=== PATIENT | female | born 1970 | race Caucasian/White ===

== ENCOUNTER → 2017-05-12 | Outpatient (CLI) | payer BC ==
--- NOTE | 2017-05-13 07:31 | MM ---
Reason for exam: screening (asymptomatic). Last mammogram was performed 2 years and 6 months ago. History: Family history of breast cancer in mother at age 64 and breast cancer in paternal aunt. Took hormonal contraceptives for 7 years beginning at age 27. Physical Findings: A clinical breast exam by your physician is recommended on an annual basis and results should be correlated with mammographic findings. MG Screening Mammo w CAD Bilateral CC and MLO view(s) were taken. Prior study comparison: November 26, 2014, bilateral MG screening mammo w CAD. June 11, 2013, bilateral digital screening mammo w/CAD. There are scattered fibroglandular densities. There is no discrete abnormality. No significant changes when compared with prior studies. ASSESSMENT: Negative, BI-RAD 1 RECOMMENDATION: Routine screening mammogram of both breasts in 1 year.
== END | disposition home or self-care (01) ==
LOC: RADMAMWWP 07:33
PROVIDERS: ATTEND Obstetrics & Gynecology
DX: Z12.31 Encounter for screening mammogram for malignant neoplasm of breast (principal)

== ENCOUNTER → 2019-09-26 | Outpatient (CLI) | payer BC ==
--- NOTE | 2019-09-27 10:44 | MM ---
Reason for exam: screening (asymptomatic). Last mammogram was performed 2 years and 4 months ago. History: Family history of breast cancer in mother at age 64 and breast cancer in paternal aunt. Took hormonal contraceptives for 7 years beginning at age 27. Physical Findings: A clinical breast exam by your physician is recommended on an annual basis and results should be correlated with mammographic findings. MG 3D Screening Mammo W/Cad Bilateral CC and MLO view(s) were taken. Prior study comparison: May 12, 2017, bilateral MG screening mammo w CAD. November 26, 2014, bilateral MG screening mammo w CAD. The breast tissue is heterogeneously dense. This may lower the sensitivity of mammography. There is no discrete abnormality. No significant changes when compared with prior studies. ASSESSMENT: Negative, BI-RAD 1 RECOMMENDATION: Routine screening mammogram of both breasts in 1 year.
== END | disposition home or self-care (01) ==
LOC: RADMAMWWP 07:13
PROVIDERS: ATTEND Obstetrics & Gynecology
DX: Z12.31 Encounter for screening mammogram for malignant neoplasm of breast (principal); Z80.3 Family history of malignant neoplasm of breast
CPT/HCPCS: 77063; 77067

== ENCOUNTER 2020-09-16 08:15 | Emergency (ER) | payer BC ==
[2020-09-16] MEDS ORDERED: ACETAMINOPHEN TAB 500 MG TAB PO STA (08:50)
[2020-09-16] MEDS ORDERED: SODIUM CHLORIDE 0.9% 2,000 ML IV ONE (08:51)
--- NOTE | 2020-09-16 08:53 | ED ---
General Adult HPI - General Chief complaint: Nausea/Vomiting/Diarrhea Stated complaint: Covid +, Vomiting Time Seen by Provider: 09/16/20 08:27 Source: patient, RN notes reviewed, old records reviewed Mode of arrival: wheelchair Limitations: no limitations - History of Present Illness Initial comments: Patient is a 50-year-old female who presents to the emergency department today for evaluation chief complaint of nausea vomiting diarrhea. She reports she's had significant symptoms for the past 48 hours. Patient states that she's been coming down and bodyaches fevers chills and nausea on Tuesday of last week and had a cold the test on Tuesday that was positive. Patient was exposed to a coworker. She reports she's been trying Zofran at home without relief. She reports her mouth feels dry. She denies trouble breathing or chest pain. - Related Data Previous Rx's Medication Instructions Recorded Metoclopramide [Reglan] 10 mg PO BID #20 tab 09/16/20 Ondansetron Odt [Zofran Odt] 4 mg PO Q8HR PRN #12 tab 09/16/20 Allergies Allergy/AdvReac Type Severity Reaction Status Date / Time No Known Allergies Allergy Verified 09/16/20 08:22 Review of Systems ROS Statement: Those systems with pertinent positive or pertinent negative responses have been documented in the HPI. ROS Other: All systems not noted in ROS Statement are negative. Past Medical History Past Medical History: GERD/Reflux Additional Past Medical History / Comment(s): UTI'S, STRESS INCONT History of Any Multi-Drug Resistant Organisms: None Reported Past Surgical History: Cholecystectomy Additional Past Surgical History / Comment(s): GANGLION CYST REMOVED FROM LT HAND,OVARIAN CYST REMOVED Past Anesthesia/Blood Transfusion Reactions: No Reported Reaction Past Psychological History: Anxiety Smoking Status: Never smoker Past Alcohol Use History: Occasional Past Drug Use History: None Reported - Past Family History Mother Family Medical History: Diabetes Mellitus, Myocardial Infarction ([place]) Additional Family Medical History / Comment(s): HAD [place] AT EITHER AGE 49 OR 50 Father Family Medical History: Myocardial Infarction ([place]) Additional Family Medical History / Comment(s): PA AT AGE 55, SPINAL STENOSIS General Exam - General Exam Comments Initial Comments: 50-year-old female. No distress. Limitations: no limitations General appearance: alert, in no apparent distress Head exam: Present: atraumatic, normocephalic, normal inspection Eye exam: Present: normal appearance, PERRL, EOMI. Absent: scleral icterus, conjunctival injection, periorbital swelling ENT exam: Present: normal exam, mucous membranes moist Neck exam: Present: normal inspection. Absent: tenderness, meningismus, lymphadenopathy Respiratory exam: Present: normal lung sounds bilaterally. Absent: respiratory distress, wheezes, rales, rhonchi, stridor Cardiovascular Exam: Present: regular rate, normal rhythm, normal heart sounds. Absent: systolic murmur, diastolic murmur, rubs, gallop, clicks GI/Abdominal exam: Present: soft, normal bowel sounds. Absent: distended, tenderness, guarding, rebound, rigid Extremities exam: Present: normal inspection, full ROM, normal capillary refill. Absent: tenderness, pedal edema, joint swelling, calf tenderness Back exam: Present: normal inspection Neurological exam: Present: alert, oriented X3, CN II-XII intact Psychiatric exam: Present: normal affect, normal mood Skin exam: Present: warm, dry, intact, normal color. Absent: rash Course Vital Signs 09/16/20 09/16/20 08:16 11:40 Temperature 101.9 F H 101.3 F H Pulse Rate 106 H 94 Respiratory 18 17 Rate Blood Pressure 125/77 145/78 O2 Sat by Pulse 94 L 96 Oximetry Medical Decision Making - Lab Data Result diagrams: 09/16/20 10:25 09/16/20 10:25 Lab Results 09/16/20 09/16/20 09/16/20 Range/Units 10:25 10:25 10:25 WBC 4.2 (3.8-10.6) k/uL RBC 5.22 (3.80-5.40) m/uL Hgb 15.7 (11.4-16.0) gm/dL Hct 44.8 (34.0-46.0) % MCV 85.9 (80.0-100.0) fL MCH 30.0 (25.0-35.0) pg MCHC 35.0 (31.0-37.0) g/dL RDW 12.2 (11.5-15.5) % Plt Count 188 (150-450) k/uL MPV 7.2 Neutrophils % 85 % Lymphocytes % 8 % Monocytes % 4 % Eosinophils % 1 % Basophils % 1 % Neutrophils # 3.6 (1.3-7.7) k/uL Lymphocytes # 0.4 L (1.0-4.8) k/uL Monocytes # 0.2 (0-1.0) k/uL Eosinophils # 0.0 (0-0.7) k/uL Basophils # 0.1 (0-0.2) k/uL PT 9.9 (9.0-12.0) sec INR 0.9 (<1.2) APTT 22.2 (22.0-30.0) sec Sodium 135 L (137-145) mmol/L Potassium 3.3 L (3.5-5.1) mmol/L Chloride 99 (98-107) mmol/L Carbon Dioxide 27 (22-30) mmol/L Anion Gap 9 mmol/L BUN 11 (7-17) mg/dL Creatinine 0.71 (0.52-1.04) mg/dL Est GFR (CKD-EPI)AfAm >90 (>60 ml/min/1.73 sqM) Est GFR (CKD-EPI)NonAf >90 (>60 ml/min/1.73 sqM) Glucose 130 H (74-99) mg/dL Plasma Lactic Acid Elvis (0.7-2.0) mmol/L Calcium 8.5 (8.4-10.2) mg/dL Magnesium 2.1 (1.6-2.3) mg/dL Total Bilirubin 0.6 (0.2-1.3) mg/dL AST 91 H (14-36) U/L ALT 84 H (4-34) U/L Alkaline Phosphatase 88 (38-126) U/L Lactate Dehydrogenase 697 H (313-618) U/L C-Reactive Protein 19.6 H (<10.0) mg/L Total Protein 7.4 (6.3-8.2) g/dL Albumin 4.3 (3.5-5.0) g/dL 09/16/20 Range/Units 10:25 WBC (3.8-10.6) k/uL RBC (3.80-5.40) m/uL Hgb (11.4-16.0) gm/dL Hct (34.0-46.0) % MCV (80.0-100.0) fL MCH (25.0-35.0) pg MCHC (31.0-37.0) g/dL RDW (11.5-15.5) % Plt Count (150-450) k/uL MPV Neutrophils % % Lymphocytes % % Monocytes % % Eosinophils % % Basophils % % Neutrophils # (1.3-7.7) k/uL Lymphocytes # (1.0-4.8) k/uL Monocytes # (0-1.0) k/uL Eosinophils # (0-0.7) k/uL Basophils # (0-0.2) k/uL PT (9.0-12.0) sec INR (<1.2) APTT (22.0-30.0) sec Sodium (137-145) mmol/L Potassium (3.5-5.1) mmol/L Chloride (98-107) mmol/L Carbon Dioxide (22-30) mmol/L Anion Gap mmol/L BUN (7-17) mg/dL Creatinine (0.52-1.04) mg/dL Est GFR (CKD-EPI)AfAm (>60 ml/min/1.73 sqM) Est GFR (CKD-EPI)NonAf (>60 ml/min/1.73 sqM) Glucose (74-99) mg/dL Plasma Lactic Acid Elvis 1.0 (0.7-2.0) mmol/L Calcium (8.4-10.2) mg/dL Magnesium (1.6-2.3) mg/dL Total Bilirubin (0.2-1.3) mg/dL AST (14-36) U/L ALT (4-34) U/L Alkaline Phosphatase (38-126) U/L Lactate Dehydrogenase (313-618) U/L C-Reactive Protein (<10.0) mg/L Total Protein (6.3-8.2) g/dL Albumin (3.5-5.0) g/dL 09/16/20 10:31 EKG performed at 942 shows left axis deviation.. Infarct age undetermined. Abnormal EKG. Ventricular rate 100 beats per minute.. Intervals 128 ms. QS duration is 80 ms. QT QTc is 336/459 ms. - Radiology Data Radiology results: report reviewed Chest x-ray shows left lower lobe infiltrate. Disposition Clinical Impression: COVID-19, Nausea & vomiting Disposition: HOME SELF-CARE Condition: Good Instructions (If sedation given, give patient instructions): Acute Nausea and Vomiting (ED) Additional Instructions: Please use medication as discussed. She should monitor pulse ox at home. If pulse oximeter is below 90 were having severe difficulty in breathing please return to emergency department. Take nausea medicine as prescribed, rest remain hydrated. Patient should have self quarantine for 14 days. Please follow up with family doctor if symptoms have not improved over the next two days. Please return to the emergency room if your symptoms increase or worsen or for any other concerns. Prescriptions: Metoclopramide [Reglan] 10 mg PO BID #20 tab Ondansetron Odt [Zofran Odt] 4 mg PO Q8HR PRN #12 tab PRN Reason: Nausea Is patient prescribed a controlled substance at d/c from ED?: No Referrals: Ze Dobson DO [Primary Care Provider] - 1-2 days Time of Disposition: 12:23
[2020-09-16] MEDS ORDERED: ONDANSETRON 4 MG/2 ML VIAL IVP STA (09:57)
--- NOTE | 2020-09-16 10:00 | XR ---
EXAMINATION TYPE: XR chest 1V portable DATE OF EXAM: 09/16/2020 COMPARISON: 06/16/2016 HISTORY: Chest pain TECHNIQUE: Single frontal view of the chest is obtained. FINDINGS: There is left lower lobe infiltrate. No pneumothorax or overt failure. No pleural effusion . No interstitial edema. Heart size normal. IMPRESSION: Left lower lobe infiltrate.
[2020-09-16 10:37] LABS: Basophils # (A) 0.1 k/uL (0-0.2); Basophils % (A) 1 %; Eosinophils % (A) 1 %; HCT 44.8 % (34.0-46.0); HGB 15.7 gm/dL (11.4-16.0); Lymphocytes # (A) 0.4 k/uL (1.0-4.8); Lymphocytes % (A) 8 %; MCV 85.9 fL (80.0-100.0); Mean Platelet Volume 7.2; Monocytes # (A) 0.2 k/uL (0-1.0); Monocytes % (A) 4 %; Neutrophils # (A) 3.6 k/uL (1.3-7.7); Neutrophils % (A) 85 %; Platelet Count 188 k/uL (150-450); RBC 5.22 m/uL (3.80-5.40); RDW 12.2 % (11.5-15.5); WBC 4.2 k/uL (3.8-10.6)
[2020-09-16 10:50] LABS: ALT 84 U/L (4-34); AST 91 U/L (14-36); African American GFR (CKD) >90 (>60 ml/min/1.73 sqM); Albumin 4.3 g/dL (3.5-5.0); Alkaline Phosphatase 88 U/L (38-126); Anion Gap 9 mmol/L; Blood Urea Nitrogen 11 mg/dL (7-17); C Reactive Protein 19.6 mg/L (<10.0); Calcium 8.5 mg/dL (8.4-10.2); Carbon Dioxide 27 mmol/L (22-30); Chloride 99 mmol/L (98-107); Glucose 130 mg/dL (74-99); INR 0.9 (<1.2); LDH 697 U/L (313-618); Magnesium 2.1 mg/dL (1.6-2.3); Non-African American GFR(CKD) >90 (>60 ml/min/1.73 sqM); Partial Thromboplastin Time 22.2 sec (22.0-30.0); Potassium 3.3 mmol/L (3.5-5.1); Prothrombin Time 9.9 sec (9.0-12.0); Sodium 135 mmol/L (137-145); Total Bilirubin 0.6 mg/dL (0.2-1.3); Total Protein 7.4 g/dL (6.3-8.2)
[2020-09-16] MEDS ORDERED: SODIUM CHLORIDE 0.9% 1,000 ML IV ONE (11:16)
[2020-09-16] MEDS ORDERED: KETOROLAC 15 MG/ML 1 ML VIAL IVP STA (11:16)
[2020-09-16] MEDS ORDERED: METOCLOPRAMIDE 5 MG/ML 2 ML VIAL IVP STA (11:16)
[2020-09-16] MEDS ORDERED: diphenhydrAMINE 50 MG/ML 1 ML VIAL IVP STA (11:16)
[2020-09-16 11:41] VITALS: BP 145/78; PULSE 94; RESP 17; TEMP 101.3
[2020-09-16 15:13] LABS: Ferritin 515.3 ng/mL (10.0-291.0)
== END 2020-09-16 13:06 | disposition home or self-care (01) ==
LOC: EC 08:15
DX: U07.1 COVID-19 (principal)
CPT/HCPCS: 36415; 93005; 80053; 82728; 83605; 83615; 83735; 85025; 85610; 85730; 86140; 87040; 84145; 71045; 99284; 96374; 96375 ×3; 96361 ×3; J1200; J2765; J2405; J1885

== ENCOUNTER 2020-09-18 05:09 | Inpatient (IN) | payer BC ==
[2020-09-18] MEDS ORDERED: METOCLOPRAMIDE 5 MG/ML 2 ML VIAL IVP STA (05:40)
[2020-09-18] MEDS ORDERED: ACETAMINOPHEN TAB 325 MG TAB PO STA (05:40)
[2020-09-18] MEDS ORDERED: SODIUM CHLORIDE 0.9% 500 ML 500 ML IV STA (05:40)
[2020-09-18 06:12] LABS: Basophils % (A) 1 %; Eosinophils % (A) 1 %; HCT 40.5 % (34.0-46.0); HGB 13.7 gm/dL (11.4-16.0); Lymphocytes # (A) 0.4 k/uL (1.0-4.8); Lymphocytes % (A) 12 %; MCH 28.9 pg (25.0-35.0); MCHC 33.8 g/dL (31.0-37.0); MCV 85.6 fL (80.0-100.0); Mean Platelet Volume 7.3; Monocytes # (A) 0.1 k/uL (0-1.0); Monocytes % (A) 4 %; Neutrophils # (A) 2.6 k/uL (1.3-7.7); Neutrophils % (A) 83 %; Platelet Count 160 k/uL (150-450); RBC 4.73 m/uL (3.80-5.40); RDW 12.6 % (11.5-15.5); WBC 3.2 k/uL (3.8-10.6)
--- NOTE | 2020-09-18 06:18 | ED ---
Nausea/Vomiting/Diarrhea HPI - General Chief complaint: Nausea/Vomiting/Diarrhea Stated complaint: Vomiting, Covid + Time Seen by Provider: 09/18/20 05:20 Source: patient Mode of arrival: ambulatory Limitations: no limitations - History of Present Illness Initial comments: this patient is 50-year-old woman who presents with complaint that she has had continued vomiting and diarrhea and has not been tolerating oral fluid intake. Patient states that she had developed fever and cough and was diagnosed with coronal virus. She also had developed vomiting and diarrhea and was seen here yesterday. The patient did havefluids and then was sent home but the vomiting recurred and she has not been able take oral intake. There has been no abdominal pain. MD complaint: nausea, vomiting, diarrhea Onset/Timin -: days(s) Description of Vomiting: watery Description of Diarrhea: water Associated Abdominal Pain: No Severity scale (1-10): 0 Consistency: constant Improves with: none Worsens with: none Associated Symptoms: cough, fever/chills, nausea/vomiting - Related Data Home Medications Medication Instructions Recorded Confirmed LORazepam [Ativan] 0.5 mg PO BID PRN 09/18/20 09/18/20 Previous Rx's Medication Instructions Recorded Metoclopramide [Reglan] 10 mg PO BID #20 tab 09/16/20 Ondansetron Odt [Zofran Odt] 4 mg PO Q8HR PRN #12 tab 09/16/20 Allergies Allergy/AdvReac Type Severity Reaction Status Date / Time No Known Allergies Allergy Verified 09/18/20 07:59 Review of Systems ROS Statement: Those systems with pertinent positive or pertinent negative responses have been documented in the HPI. ROS Other: All systems not noted in ROS Statement are negative. Constitutional: Reports: fever, chills Respiratory: Reports: cough, dyspnea. Denies: wheezes, hemoptysis Cardiovascular: Denies: chest pain, palpitations, orthopnea, edema Gastrointestinal: Reports: nausea, vomiting, diarrhea. Denies: abdominal pain, hematemesis, melena, hematochezia Genitourinary: Denies: dysuria, hematuria Musculoskeletal: Denies: back pain Skin: Denies: rash Neurological: Denies: headache, weakness, numbness Past Medical History Past Medical History: GERD/Reflux Additional Past Medical History / Comment(s): UTI'S, STRESS INCONT History of Any Multi-Drug Resistant Organisms: None Reported Past Surgical History: Cholecystectomy Additional Past Surgical History / Comment(s): GANGLION CYST REMOVED FROM LT HAND,OVARIAN CYST REMOVED Past Anesthesia/Blood Transfusion Reactions: No Reported Reaction Past Psychological History: Anxiety Smoking Status: Never smoker Past Alcohol Use History: Occasional Past Drug Use History: None Reported - Past Family History Mother Family Medical History: Diabetes Mellitus, Myocardial Infarction ([place]) Additional Family Medical History / Comment(s): HAD [place] AT EITHER AGE 49 OR 50 Father Family Medical History: Myocardial Infarction ([place]) Additional Family Medical History / Comment(s): [place] AT AGE 55, SPINAL STENOSIS General Exam Limitations: no limitations General appearance: alert, in no apparent distress Head exam: Present: atraumatic, normocephalic Eye exam: Present: normal appearance. Absent: scleral icterus, conjunctival injection ENT exam: Present: mucous membranes dry Neck exam: Present: normal inspection Respiratory exam: Present: normal lung sounds bilaterally. Absent: respiratory distress, wheezes, rales, rhonchi, stridor Cardiovascular Exam: Present: tachycardia, normal heart sounds. Absent: systolic murmur, diastolic murmur, rubs, gallop GI/Abdominal exam: Present: soft. Absent: distended, tenderness, guarding, rebound, rigid, mass Extremities exam: Present: normal inspection, normal capillary refill. Absent: pedal edema, calf tenderness Back exam: Present: normal inspection. Absent: CVA tenderness (R), CVA tenderness (L) Neurological exam: Present: alert Skin exam: Present: warm, dry, intact, normal color. Absent: rash Course Vital Signs 09/18/20 09/18/20 09/18/20 05:23 06:15 07:27 Temperature 103.1 F H 102.5 F H 102.8 F H Pulse Rate 108 H 102 H 104 H Respiratory 18 19 18 Rate Blood Pressure 157/84 133/72 135/71 O2 Sat by Pulse 92 L 91 L 94 L Oximetry 09/18/20 09/18/20 09/18/20 09:30 11:53 14:05 Temperature 100 F H 99.1 F Pulse Rate 94 89 82 Respiratory 18 18 18 Rate Blood Pressure 132/72 116/64 111/74 O2 Sat by Pulse 96 95 94 L Oximetry 09/18/20 09/18/20 16:45 17:57 Temperature 99.5 F 100.2 F H Pulse Rate 82 100 Respiratory 18 18 Rate Blood Pressure 147/77 161/74 O2 Sat by Pulse 95 93 L Oximetry Medical Decision Making - Lab Data Result diagrams: 09/19/20 05:50 09/18/20 06:00 Lab Results 09/18/20 09/18/20 09/18/20 Range/Units 06:00 06:00 06:00 WBC 3.2 L (3.8-10.6) k/uL RBC 4.73 (3.80-5.40) m/uL Hgb 13.7 (11.4-16.0) gm/dL Hct 40.5 (34.0-46.0) % MCV 85.6 (80.0-100.0) fL MCH 28.9 (25.0-35.0) pg MCHC 33.8 (31.0-37.0) g/dL RDW 12.6 (11.5-15.5) % Plt Count 160 (150-450) k/uL MPV 7.3 Neutrophils % 83 % Lymphocytes % 12 % Monocytes % 4 % Eosinophils % 1 % Basophils % 1 % Neutrophils # 2.6 (1.3-7.7) k/uL Lymphocytes # 0.4 L (1.0-4.8) k/uL Monocytes # 0.1 (0-1.0) k/uL Eosinophils # 0.0 (0-0.7) k/uL Basophils # 0.0 (0-0.2) k/uL Sodium 135 L (137-145) mmol/L Potassium 3.1 L (3.5-5.1) mmol/L Chloride 105 (98-107) mmol/L Carbon Dioxide 23 (22-30) mmol/L Anion Gap 7 mmol/L BUN 5 L (7-17) mg/dL Creatinine 0.62 (0.52-1.04) mg/dL Est GFR (CKD-EPI)AfAm >90 (>60 ml/min/1.73 sqM) Est GFR (CKD-EPI)NonAf >90 (>60 ml/min/1.73 sqM) Glucose 127 H (74-99) mg/dL Plasma Lactic Acid Elvis (0.7-2.0) mmol/L Calcium 7.9 L (8.4-10.2) mg/dL Total Bilirubin 0.6 (0.2-1.3) mg/dL AST 55 H (14-36) U/L ALT 48 H (4-34) U/L Alkaline Phosphatase 67 (38-126) U/L Total Protein 6.4 (6.3-8.2) g/dL Albumin 3.6 (3.5-5.0) g/dL Urine Color Yellow Urine Appearance Cloudy H (Clear) Urine pH 6.0 (5.0-8.0) Ur Specific [place] 1.028 (1.001-1.035) Urine Protein 2+ H (Negative) Urine Glucose (UA) Negative (Negative) Urine Ketones 3+ H (Negative) Urine Blood Small H (Negative) Urine Nitrite Negative (Negative) Urine Bilirubin Negative (Negative) Urine Urobilinogen <2.0 (<2.0) mg/dL Ur Leukocyte Esterase Trace H (Negative) Urine RBC 1 (0-5) /hpf Urine WBC 4 (0-5) /hpf Ur Squamous Epith Cells 1 (0-4) /hpf Hyaline Casts 1 (0-2) /lpf Urine Mucus Rare H (None) /hpf 09/18/20 Range/Units 06:00 WBC (3.8-10.6) k/uL RBC (3.80-5.40) m/uL Hgb (11.4-16.0) gm/dL Hct (34.0-46.0) % MCV (80.0-100.0) fL MCH (25.0-35.0) pg MCHC (31.0-37.0) g/dL RDW (11.5-15.5) % Plt Count (150-450) k/uL MPV Neutrophils % % Lymphocytes % % Monocytes % % Eosinophils % % Basophils % % Neutrophils # (1.3-7.7) k/uL Lymphocytes # (1.0-4.8) k/uL Monocytes # (0-1.0) k/uL Eosinophils # (0-0.7) k/uL Basophils # (0-0.2) k/uL Sodium (137-145) mmol/L Potassium (3.5-5.1) mmol/L Chloride (98-107) mmol/L Carbon Dioxide (22-30) mmol/L Anion Gap mmol/L BUN (7-17) mg/dL Creatinine (0.52-1.04) mg/dL Est GFR (CKD-EPI)AfAm (>60 ml/min/1.73 sqM) Est GFR (CKD-EPI)NonAf (>60 ml/min/1.73 sqM) Glucose (74-99) mg/dL Plasma Lactic Acid Elvis 0.7 (0.7-2.0) mmol/L Calcium (8.4-10.2) mg/dL Total Bilirubin (0.2-1.3) mg/dL AST (14-36) U/L ALT (4-34) U/L Alkaline Phosphatase (38-126) U/L Total Protein (6.3-8.2) g/dL Albumin (3.5-5.0) g/dL Urine Color Urine Appearance (Clear) Urine pH (5.0-8.0) Ur Specific [place] (1.001-1.035) Urine Protein (Negative) Urine Glucose (UA) (Negative) Urine Ketones (Negative) Urine Blood (Negative) Urine Nitrite (Negative) Urine Bilirubin (Negative) Urine Urobilinogen (<2.0) mg/dL Ur Leukocyte Esterase (Negative) Urine RBC (0-5) /hpf Urine WBC (0-5) /hpf Ur Squamous Epith Cells (0-4) /hpf Hyaline Casts (0-2) /lpf Urine Mucus (None) /hpf - EKG Data -: EKG Interpreted by [facility] EKG shows normal: sinus rhythm, axis (left axis deviation), intervals (normal), QRS complexes (normal), ST-T waves (normal) Rate: tachycardia (rate 103 bpm) Disposition Clinical Impression: COVID-19, Nausea & vomiting Disposition: ADMITTED IP TO THIS HOSP Condition: Fair Is patient prescribed a controlled substance at d/c from ED?: No
[2020-09-18 06:26] LABS: ALT 48 U/L (4-34); African American GFR (CKD) >90 (>60 ml/min/1.73 sqM); Albumin 3.6 g/dL (3.5-5.0); Anion Gap 7 mmol/L; Blood Urea Nitrogen 5 mg/dL (7-17); Calcium 7.9 mg/dL (8.4-10.2); Carbon Dioxide 23 mmol/L (22-30); Chloride 105 mmol/L (98-107); Glucose 127 mg/dL (74-99); Non-African American GFR(CKD) >90 (>60 ml/min/1.73 sqM); Sodium 135 mmol/L (137-145); Total Bilirubin 0.6 mg/dL (0.2-1.3); Total Protein 6.4 g/dL (6.3-8.2)
[2020-09-18 06:36] LABS: Appearance,Urine Cloudy (Clear); Bilirubin,Urine Negative (Negative); Blood,Urine Small (Negative); Color,Urine Yellow; Glucose,Urine (UA) Negative (Negative); Hyaline Casts,Urine 1 /lpf (0-2); Ketones,Urine 3+ (Negative); Leukocyte Esterase,Urine Trace (Negative); Mucus,Urine Rare /hpf; Nitrite,Urine Negative (Negative); Protein,Urine 2+ (Negative); RBC,Urine 1 /hpf (0-5); Specific Gravity,Urine 1.028 (1.001-1.035); Squamous Epithelial Cell,Urine 1 /hpf (0-4); Urobilinogen,Urine <2.0 mg/dL (<2.0); WBC,Urine 4 /hpf (0-5)
[2020-09-18 06:37] LABS: AST 55 U/L (14-36); Alkaline Phosphatase 67 U/L (38-126); Potassium 3.1 mmol/L (3.5-5.1)
[2020-09-18] MEDS ORDERED: SODIUM CHLORIDE 0.9% 1,000 ML IV ONE (07:11)
[2020-09-18] MEDS ORDERED: ONDANSETRON 4 MG/2 ML VIAL IVP STA (07:11)
[2020-09-18] MEDS ORDERED: PROCHLORPERAZINE SUPPOSITORY 25 MG SUPP RECTAL PRN (07:16)
[2020-09-18] MEDS ORDERED: NALOXONE 0.4 MG/ML 1 ML VIAL IV PRN (07:16)
[2020-09-18] MEDS: DEXAMETHASONE SOD PHOSPHATE 10 MG/ML 1 ML VIAL IV SCH (07:24)
[2020-09-18] MEDS ORDERED: AZITHROMYCIN 500 MG TAB PO STA (07:58)
[2020-09-18] MEDS ORDERED: IBUPROFEN 600 MG TAB PO STA (07:59)
[2020-09-18] MEDS: SODIUM CHLORIDE 0.9% 1,000 ML IV SCH ×2 (08:25→18:06)
--- NOTE | 2020-09-18 08:36 | XR ---
EXAMINATION TYPE: XR chest 1V portable DATE OF EXAM: 09/18/2020 COMPARISON: Prior chest x-ray 09/16/2020 HISTORY: Dyspnea TECHNIQUE: Single frontal view of the chest is obtained. FINDINGS: Lung volumes are low. Patchy basilar density is noted. No evident pneumothorax or pleural effusion. Heart size is stable. IMPRESSION: Subsegmental basilar atelectatic changes, correlate to exclude pneumonia
[2020-09-18] MEDS ORDERED: DEXAMETHASONE SOD PHOSPHATE 10 MG/ML 1 ML VIAL IV SCH (09:00)
[2020-09-18] MEDS ORDERED: POTASSIUM CHLORIDE ER 20 MEQ TAB.ER PO STA (11:44)
--- NOTE | 2020-09-18 11:49 | P.HPIM ---
History of Present Illness H&P Date: 09/18/20 HISTORY OF PRESENT ILLNESS This is a 50-year-old female patient of Dr. Dobson with past medical history of gastroesophageal reflux disease, stress incontinence. 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 She initially presented to the emergency room on September 16 with nausea, vomiting, diarrhea that and going on for 48 hours. She also had body aches and fever. Symptoms started on Tuesday of last week. She did not have any shortness of breath. Inflammatory markers were elevated. Chest x-ray showed left lower lobe pneumonia. Patient had stable pulse ox and was discharged home with Reglan and Zofran which she has been taking. She returned today with continuing nausea, vomiting and diarrhea and unable to tolerate oral intake. She denies any abdominal pain. She continues to have fever. She denies having any cough or sputum production. No shortness of breath. No loss of taste or smell. She does have decreased appetite. Diarrhea is occurring a few times per day. She states that her daughter has also been diagnosed and second child is being tested. Her does not have any symptoms. Patient came into [facility] emergency center for reevaluation and found to have a fever of 103.1, heart rate 108, blood pressure 157/84, pulse ox 92% on oxygen. Sodium 135, potassium 3.1. BUN 5 and creatinine 0.62. Blood sugar 127. Lactic acid 0.7. AST 55 and ALT 48. EKG was a sinus rhythm with no acute ST changes. Repeat chest x-ray reveals subsegmental basilar atelectasis changes correlate to exclude pneumonia. Urinalysis cloudy, leukoesterase small, blood small. Patient started on Decadron, Zofran, Compazine, IV fluids [facility] REVIEW OF SYSTEMS Constitutional: Reports reports fever, reports chills, no night sweats. No weight change. Reports weakness, Reports fatigue Reports lethargy. Reports daytime sleepiness. EENT: No headache. No blurred vision or double vision, no loss of vision. No nasal drainage or congestion. No sore throat. Lungs: No shortness of breath, cough, no sputum production. No wheezing. Cardiovascular: No chest pain, no lower extremity edema. No palpitations. No paroxysmal nocturnal dyspnea. No orthopnea. No lightheadedness or dizziness. No syncopal episodes. Abdominal: No abdominal pain. Reports nausea, Reports vomiting. Reports diarrhea. No constipation. No bloody or tarry stools.Reports loss of appetite. Genitourinary: No dysuria, increased frequency, urgency. No urinary retention. Musculoskeletal: No myalgias. Reports muscle weakness, no gait dysfunction, no frequent falls. No back pain. No neck pain. Integumentary: No wounds, no lesions. No rash or pruritus. Neurologic: No aphasia. No facial droop. No change in mentation. No head injury. No headache. No paralysis. No paresthesia. Psychiatric: No depression. No anxiety. Endocrine: No abnormal blood sugars. SOCIAL HISTORY The patient is a lifelong nonsmoker, occasional alcohol use. No illicit drug use. She is and lives at home with her and 2 children. 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 FAMILY HISTORY Mother is alive in her 70s with history of coronary artery disease and diabetes. Father is alive in his 70s with coronary artery disease patient has 1 brother with no major medical problems. Patient is to children with no major medical problems.. PHYSICAL EXAMINATION Gen: This is a 50-year-old female. Patient is resting on the ER stretcher and appears to be comfortable. HEENT: Head is atraumatic, normocephalic. Pupils equal, round. Sclerae is anicteric. NECK: Supple. No JVD. No lymphadenopathy. No thyromegaly. LUNGS: Clear to auscultation. No wheezes or rhonchi. No intercostal retractions. HEART: Regular rate and rhythm. No murmur. ABDOMEN: Soft. Bowel sounds are present. No masses. Mild generalized tenderness. EXTREMITIES: No pedal edema. No calf tenderness. NEUROLOGICAL: Patient is awake, alert and oriented x3. Cranial nerves 2 through 12 are grossly intact. ASSESSMENT AND PLAN 1. Sepsis secondary to Covid 19 infection with GI symptoms. Patient is continued on dexamethasone 6 mg IV daily, Zofran and Compazine as needed for nausea. Continue vitamin C, vitamin D and zinc. 2. Gastroesophageal reflux disease. Protonix 40 mg IV daily. 3. History of stress incontinence. 4. GI prophylaxis. 5. DVT prophylaxis. Lovenox 40 mg daily. 6. Hypokalemia secondary to GI losses. Potassium replacement. Repeat CMP in the morning. 7. Dehydration. Continue IV fluids. Patient will be admitted to the hospital for a minimum of 2 night stay. DISCHARGE PLAN home. Impression and plan of care have been directed as dictated by the signing physician. Paula Valentin nurse practitioner acting as scribe for signing physician. Past Medical History Past Medical History: GERD/Reflux Additional Past Medical History / Comment(s): UTI'S, STRESS INCONT History of Any Multi-Drug Resistant Organisms: None Reported Past Surgical History: Cholecystectomy Additional Past Surgical History / Comment(s): GANGLION CYST REMOVED FROM LT HAND,OVARIAN CYST REMOVED Past Anesthesia/Blood Transfusion Reactions: No Reported Reaction Past Psychological History: Anxiety Smoking Status: Never smoker Past Alcohol Use History: Occasional Past Drug Use History: None Reported - Past Family History Mother Family Medical History: Diabetes Mellitus, Myocardial Infarction ([place]) Additional Family Medical History / Comment(s): HAD TX AT EITHER AGE 49 OR 50 Father Family Medical History: Myocardial Infarction ([place]) Additional Family Medical History / Comment(s): TX AT AGE 55, SPINAL STENOSIS Medications and Allergies Home Medications Medication Instructions Recorded Confirmed Type Metoclopramide [Reglan] 10 mg PO BID #20 tab 09/16/20 09/18/20 Rx Ondansetron Odt [Zofran Odt] 4 mg PO Q8HR PRN #12 tab 09/16/20 09/18/20 Rx LORazepam [Ativan] 0.5 mg PO BID PRN 09/18/20 09/18/20 History Allergies Allergy/AdvReac Type Severity Reaction Status Date / Time No Known Allergies Allergy Verified 09/18/20 07:59 Physical Exam Vitals: Vital Signs Temp Pulse Resp BP Pulse Ox 09/18/20 07:27 102.8 F H 104 H 18 135/71 94 L 09/18/20 06:15 102.5 F H 102 H 19 133/72 91 L 09/18/20 05:23 103.1 F H 108 H 18 157/84 92 L Intake and Output 09/17/20 09/18/20 09/18/20 22:59 06:59 14:59 Other: Weight 95.254 kg Results CBC & Chem 7: 09/18/20 06:00 09/18/20 06:00 Labs: Abnormal Lab Results - Last 24 Hours (Table) 09/18/20 09/18/20 Range/Units 06:00 06:00 WBC 3.2 L (3.8-10.6) k/uL Lymphocytes # 0.4 L (1.0-4.8) k/uL Sodium 135 L (137-145) mmol/L Potassium 3.1 L (3.5-5.1) mmol/L BUN 5 L (7-17) mg/dL Glucose 127 H (74-99) mg/dL Calcium 7.9 L (8.4-10.2) mg/dL AST 55 H (14-36) U/L ALT 48 H (4-34) U/L
[2020-09-18] MEDS: CHOLECALCIFEROL 1,000 UNIT TAB PO SCH (14:14)
[2020-09-18] MEDS: ENOXAPARIN 40 MG/0.4 ML SYRINGE SQ SCH (14:15)
[2020-09-18] MEDS: PANTOPRAZOLE 40 MG/10 ML VIAL IVP SCH (14:15)
[2020-09-18] MEDS: ACETAMINOPHEN TAB 325 MG TAB PO PRN (18:00)
[2020-09-18] MEDS: IBUPROFEN 400 MG TAB PO PRN (20:50)
[2020-09-19] MEDS: SODIUM CHLORIDE 0.9% 1,000 ML IV SCH ×3 (00:19→14:00)
[2020-09-19] MEDS: ACETAMINOPHEN TAB 325 MG TAB PO PRN ×2 (04:45→16:01)
[2020-09-19] MEDS: ONDANSETRON 4 MG/2 ML VIAL IVP PRN ×2 (04:45→16:01)
[2020-09-19] MEDS: IBUPROFEN 400 MG TAB PO PRN ×2 (05:31→20:25)
[2020-09-19] MEDS ORDERED: guaiFENesin SYRUP 100MG/5ML 200 MG/10 ML CUP PO PRN (06:00)
[2020-09-19 07:00] LABS: HCT 35.7 % (34.0-46.0); HGB 12.5 gm/dL (11.4-16.0); MCH 30.3 pg (25.0-35.0); MCV 86.7 fL (80.0-100.0); Mean Platelet Volume 7.3; Platelet Count 148 k/uL (150-450); RBC 4.12 m/uL (3.80-5.40); RDW 12.4 % (11.5-15.5); WBC 3.4 k/uL (3.8-10.6)
[2020-09-19] MEDS: PANTOPRAZOLE 40 MG/10 ML VIAL IVP SCH (07:44)
[2020-09-19] MEDS: DEXAMETHASONE SOD PHOSPHATE 10 MG/ML 1 ML VIAL IV SCH (07:44)
[2020-09-19] MEDS: CHOLECALCIFEROL 1,000 UNIT TAB PO SCH (07:44)
[2020-09-19] MEDS: ENOXAPARIN 40 MG/0.4 ML SYRINGE SQ SCH (07:45)
[2020-09-19 10:06] LABS: Albumin 3.3 g/dL (3.80-4.90); Albumin/Globulin Ratio 1.74 (1.60-3.17); Anion Gap 8.6 mmol/L (4.00-12.00); BUN/Creat Ratio 8.33 Ratio (12.00-20.00); Calcium 7.4 mg/dL (8.7-10.3); Carbon Dioxide 24.4 mmol/L (21.6-31.8); Globulin 1.9 g/dL (1.6-3.3); Total Bilirubin 0.4 mg/dL (0.2-1.2); Total Protein 5.2 g/dL (6.2-8.2)
--- NOTE | 2020-09-19 10:42 | P.PN ---
Subjective Progress Note Date: 09/19/20 HISTORY OF PRESENT ILLNESS This is a 50-year-old female patient of Dr. Dobson with past medical history of gastroesophageal reflux disease, stress incontinence. 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 She initially presented to the emergency room on September 16 with nausea, vomiting, diarrhea that and going on for 48 hours. She also had body aches and fever. Symptoms started on Tuesday of last week. She did not have any shortness of breath. Inflammatory markers were elevated. Chest x-ray showed left lower lobe pneumonia. Patient had stable pulse ox and was discharged home with Reglan and Zofran which she has been taking. She returned today with continuing nausea, vomiting and diarrhea and unable to tolerate oral intake. She denies any abdominal pain. She continues to have fever. She denies having any cough or sputum production. No shortness of breath. No loss of taste or smell. She does have decreased appetite. Diarrhea is occurring a few times per day. She states that her daughter has also been diagnosed and second child is being tested. Her does not have any symptoms. Patient came into [facility] emergency center for reevaluation and found to have a fever of 103.1, heart rate 108, blood pressure 157/84, pulse ox 92% on oxygen. Sodium 135, potassium 3.1. BUN 5 and creatinine 0.62. Blood sugar 127. Lactic acid 0.7. AST 55 and ALT 48. EKG was a sinus rhythm with no acute ST changes. Repeat chest x-ray reveals subsegmental basilar atelectasis changes correlate to exclude pneumonia. Urinalysis cloudy, leukoesterase small, blood small. Patient started on Decadron, Zofran, Compazine, IV fluids [facility] 09/19: Patient is only eating 25% of her meals. Patient is still having diarrhea but decreased frequency. She is having some mild shortness of breath and incentive spirometry added. Pulse ox is 91% on room air. Temperature maximum 100.4, heart rate 95, blood pressure 124/77. Consult for Dr. Marinelli added. REVIEW OF SYSTEMS Constitutional: Reports reports fever, reports chills, no night sweats. No weight change. Reports weakness, Reports fatigue Reports lethargy. Reports daytime sleepiness. EENT: No headache. No nasal drainage or congestion. No sore throat. Lungs: No shortness of breath, cough, no sputum production. No wheezing. Cardiovascular: No chest pain, no lower extremity edema. No palpitations. No paroxysmal nocturnal dyspnea. No orthopnea. No lightheadedness or dizziness. No syncopal episodes. Abdominal: No abdominal pain. Reports nausea, Reports vomiting. Reports diarrhea. No constipation. No bloody or tarry stools.Reports loss of appetite. Genitourinary: No dysuria, increased frequency, urgency. No urinary retention. Musculoskeletal: No myalgias. Reports muscle weakness, no gait dysfunction, no frequent falls. No back pain. No neck pain. Integumentary: No wounds, no lesions. No rash or pruritus. Neurologic: No aphasia. No facial droop. No change in mentation. No head injury. No headache. No paralysis. No paresthesia. Psychiatric: No depression. No anxiety. Endocrine: No abnormal blood sugars. PHYSICAL EXAMINATION Gen: This is a 50-year-old female. Patient is resting in bedr and appears to be comfortable. HEENT: Head is atraumatic, normocephalic. Pupils equal, round. Sclerae is anicteric. NECK: Supple. No JVD. No lymphadenopathy. No thyromegaly. LUNGS: Clear to auscultation. No wheezes or rhonchi. No intercostal retractions. HEART: Regular rate and rhythm. No murmur. ABDOMEN: Soft. Bowel sounds are present. No masses. Mild generalized tenderness. EXTREMITIES: No pedal edema. No calf tenderness. NEUROLOGICAL: Patient is awake, alert and oriented x3. Cranial nerves 2 through 12 are grossly intact. ASSESSMENT AND PLAN 1. Sepsis secondary to Covid 19 infection with GI symptoms. Patient is continued on dexamethasone 6 mg IV daily, Zofran and Compazine as needed for nausea. Continue vitamin C, vitamin D and zinc. Consult with Dr. Marinelli added. 2. Gastroesophageal reflux disease. Protonix 40 mg IV daily. 3. History of stress incontinence. 4. GI prophylaxis. 5. DVT prophylaxis. Lovenox 40 mg daily. 6. Hypokalemia secondary to GI losses. Potassium replaced. 7. Dehydration. Continue IV fluids. DISCHARGE PLAN home on Tuesday or Tuesday Impression and plan of care have been directed as dictated by the signing physician. Paula Valentin nurse practitioner acting as scribe for signing physician. Objective - Vital Signs Vital signs: Vital Signs Temp 100.4 F H 09/19/20 07:00 Pulse 95 09/19/20 07:00 Resp 18 09/19/20 07:00 BP 124/77 09/19/20 07:00 Pulse Ox 91 L 09/19/20 07:00 Intake & Output 09/18/20 09/19/20 09/19/20 18:59 06:59 18:59 Intake Total 1695 Balance 1695 Weight 95.254 kg Intake: Intake, IV Titration 1495 Amount Sodium Chloride 0.9% 1, 1495 000 ml @ 130 mls/hr IV . Q7H42M [facility] Rx#:[id number] Oral 200 Other: Voiding Method Toilet # Voids 2 - Labs CBC & Chem 7: 09/19/20 05:50 09/19/20 05:45 Labs: Abnormal Lab Results - Last 24 Hours (Table) 09/18/20 09/19/20 Range/Units 06:00 05:50 WBC 3.4 L (3.8-10.6) k/uL Plt Count 148 L (150-450) k/uL Urine Appearance Cloudy H (Clear) Urine Protein 2+ H (Negative) Urine Ketones 3+ H (Negative) Urine Blood Small H (Negative) Ur Leukocyte Esterase Trace H (Negative) Urine Mucus Rare H (None) /hpf
[2020-09-19] MEDS: POTASSIUM CHLORIDE ER 20 MEQ TAB.ER PO SCH ×2 (10:50→13:59)
[2020-09-19] MEDS ORDERED: LORazepam 2 MG/ML INJ IV PRN (16:50)
[2020-09-19] MEDS: ASCORBIC ACID 500 MG TAB PO SCH (20:25)
[2020-09-19] MEDS ORDERED: AZITHROMYCIN 500 MG in SODIUM CHLORIDE 0.9% 250 ML IVPB ONE (22:30)
--- NOTE | 2020-09-19 22:58 | CONS ---
CONSULTATION DATE OF SERVICE: 09/19/2020 REASON FOR CONSULTATION: COVID-19 infection. HISTORY OF PRESENT ILLNESS: The patient is a 50-year-old female presenting to the ER with chief complaints of nausea, vomiting and diarrhea and unable to keep anything down. The patient's symptoms have been going on for the last few days before presentation to hospital with multiple episodes of vomiting and diarrhea. The patient denies having any chest pain. Minimal shortness of breath. Occasional cough. No sputum production. No diarrhea. The patient on presentation to the hospital did have a fever of 103.1 degrees Fahrenheit. This morning her temperature is down to 100.4. The patient saturating 94-95 percent on room air. The patient did have a mild leukopenia as well as lymphopenia with a creatinine 0.62. Liver enzymes are elevated. CRP not done or inflammatory markers. Patient did have a chest x-ray which did show subsequently basilar atelectasis, to exclude pneumonia. The patient has been started on Lovenox and zinc sulfate along with Decadron. Infectious Disease was consulted for further management off underlying Covid-19. REVIEW OF SYSTEMS: Positive points have been mentioned in HPI. Rest of the systems are negative. PAST MEDICAL HISTORY: Gastroesophageal reflux disease, UTI, stress incontinence. PAST SURGICAL HISTORY: Cholecystectomy, ganglion cyst removed from the left hand. SOCIAL HISTORY: No history of smoking. Occasionally drinks. No drug use. FAMILY HISTORY: Mother history of diabetes, [place] and father history of [place]. ALLERGIES: No known drug allergies. MEDICATIONS: Include the patient is currently on zinc sulfate, Protonix, Zofran, Narcan, Ativan, Morphine, Lovenox, Decadron. PHYSICAL EXAMINATION: Blood pressure is 135/83 with a pulse of 95, temperature 98.6. She is 92% on room air. General description: The patient is a middle-aged female lying in bed in no distress. No tachypnea or accessory muscles of respiration use. HEENT examination: No pallor or scleral icterus. Lungs unlabored breathing, decreased breath sounds. No wheeze. Heart S1, S2. Regular rate and rhythm. ABDOMEN: Soft. No tenderness. No guarding. No rigidity. EXTREMITIES: No edema of the feet. Skin examination: No rash or mass palpable. NEUROLOGICALLY: Patient is awake, alert and oriented times three. Mood and affect normal. LABS: Hemoglobin is 12.5, white count 3.4. Lymphopenia. Creatinine 0.6. Liver enzymes elevated. DIAGNOSTIC IMPRESSION AND PLAN: Patient admitted to the hospital with predominantly gastrointestinal symptoms in this patient who did have a fever with some atelectasis changes on the chest x-ray and apparently the patient did have Covid testing positive at the off site facility with a possible component of COVID-19 infection. PLAN: 1. Patient to continue with Decadron and Lovenox and iron sulfate. We will add Zithromax. 2. We will recheck chest x-ray inflammatory marker tomorrow. 3. If the patient did have any persistent fever or elevated inflammatory marker, we will recommend starting the patient on Remdesivir. 4. Droplet isolation and respiratory support. 5. We will follow up on clinical condition and culture to further adjust medication if needed. Thank you for this consultation. Will follow this patient along with you. MMFISHL / MITZYN: [id number] /
[2020-09-20] MEDS: ACETAMINOPHEN TAB 325 MG TAB PO PRN ×2 (04:09→23:27)
[2020-09-20] MEDS: SODIUM CHLORIDE 0.9% 1,000 ML IV SCH ×3 (04:53→17:35)
[2020-09-20] MEDS: ONDANSETRON 4 MG/2 ML VIAL IVP PRN (05:07)
[2020-09-20 06:48] LABS: Basophils % (A) 0 %; Eosinophils % (A) 0 %; HCT 36.6 % (34.0-46.0); HGB 12.4 gm/dL (11.4-16.0); Lymphocytes # (A) 0.7 k/uL (1.0-4.8); Lymphocytes % (A) 15 %; MCH 29.2 pg (25.0-35.0); MCHC 33.8 g/dL (31.0-37.0); MCV 86.4 fL (80.0-100.0); Mean Platelet Volume 7.5; Monocytes # (A) 0.2 k/uL (0-1.0); Monocytes % (A) 4 %; Neutrophils # (A) 3.5 k/uL (1.3-7.7); Neutrophils % (A) 79 %; Platelet Count 175 k/uL (150-450); RBC 4.24 m/uL (3.80-5.40); RDW 12.9 % (11.5-15.5); WBC 4.4 k/uL (3.8-10.6)
[2020-09-20] MEDS ORDERED: PROCHLORPERAZINE 10 MG TAB PO PRN (07:04)
[2020-09-20] MEDS: CHOLECALCIFEROL 1,000 UNIT TAB PO SCH (08:11)
[2020-09-20] MEDS: ZINC SULFATE 220 MG CAP PO SCH (08:12)
[2020-09-20] MEDS: PANTOPRAZOLE 40 MG/10 ML VIAL IVP SCH (08:12)
[2020-09-20] MEDS: DEXAMETHASONE SOD PHOSPHATE 10 MG/ML 1 ML VIAL IV SCH (08:12)
[2020-09-20] MEDS: ENOXAPARIN 40 MG/0.4 ML SYRINGE SQ SCH (08:13)
[2020-09-20] MEDS: ASCORBIC ACID 500 MG TAB PO SCH ×2 (08:24→20:15)
--- NOTE | 2020-09-20 08:58 | XR ---
EXAMINATION TYPE: XR chest 1V portable DATE OF EXAM: 09/20/2020 COMPARISON: Prior chest x-ray 09/18/2020 HISTORY: Pneumonia TECHNIQUE: Single frontal view of the chest is obtained. FINDINGS: Patchy basilar density is noted. No pneumothorax or pleural effusion. Cardiac mediastinal silhouette is stable. IMPRESSION: Correlate for possible pneumonia, follow-up PA and lateral chest x-ray suggested.
[2020-09-20] MEDS ORDERED: AZITHROMYCIN 500 MG TAB PO SCH (09:00)
[2020-09-20 09:37] LABS: ALT 38 U/L (8-44); AST 43 U/L (13-35); African American GFR (CKD) 131.7 (60.0-200.0); Albumin/Globulin Ratio 1.94 (1.60-3.17); Alkaline Phosphatase 64 U/L (41-126); Blood Urea Nitrogen <5.0 mg/dL (9.0-27.0); C Reactive Protein 4.3 mg/dL (0.0-0.8); Calcium 7.7 mg/dL (8.7-10.3); Carbon Dioxide 23.8 mmol/L (21.6-31.8); Chloride 108 mmol/L (96-109); Globulin 1.8 g/dL (1.6-3.3); Glucose 115 mg/dL (70-110); Non-African American GFR(CKD) 113.6 (60.0-200.0); Potassium 3.1 mmol/L (3.5-5.5); Sodium 142 mmol/L (135-145); Total Bilirubin 0.5 mg/dL (0.3-1.2); Total Protein 5.3 g/dL (6.2-8.2)
[2020-09-20] MEDS ORDERED: SCOPOLAMINE 1.5MG/72HR PATCH TRANSDERM SCH (10:00)
[2020-09-20] MEDS: LORazepam 1 MG TAB PO PRN ×2 (10:11→22:48)
[2020-09-20 10:42] LABS: LDH 392 U/L (120-246)
[2020-09-20] MEDS ORDERED: Potassium Replacement Protocol 1 EACH MISC MISCELLANE PRN (10:49)
--- NOTE | 2020-09-20 10:51 | P.PN ---
Subjective Progress Note Date: 09/20/20 This is a 50-year-old female patient of Dr. Dobson with past medical history of gastroesophageal reflux disease, stress incontinence. 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 She initially presented to the emergency room on September 16 with nausea, vomiting, diarrhea that and going on for 48 hours. She also had body aches and fever. Symptoms started on Tuesday of last week. She did not have any shortness of breath. Inflammatory markers were elevated. Chest x-ray showed left lower lobe pneumonia. Patient had stable pulse ox and was discharged home with Reglan and Zofran which she has been taking. She returned today with continuing nausea, vomiting and diarrhea and unable to tolerate oral intake. She denies any abdominal pain. She continues to have fever. She denies having any cough or sputum production. No shortness of breath. No loss of taste or smell. She does have decreased appetite. Diarrhea is occurring a few times per day. She states that her daughter has also been diagnosed and second child is being tested. Her does not have any symptoms. Patient came into [facility] emergency center for reevaluation and found to have a fever of 103.1, heart rate 108, blood pressure 157/84, pulse ox 92% on oxygen. Sodium 135, potassium 3.1. BUN 5 and creatinine 0.62. Blood sugar 127. La ctic acid 0.7. AST 55 and ALT 48. EKG was a sinus rhythm with no acute ST changes. Repeat chest x-ray reveals subsegmental basilar atelectasis changes correlate to exclude pneumonia. Urinalysis cloudy, leukoesterase small, blood small. Patient started on Decadron, Zofran, Compazine, IV fluids [facility] 09/20: Patient continues to complain of nausea Compazine and Zofran is not helping. Patient continues to have vomiting and diarrhea that is foul-smelling. Patient was seen by . Stool culture was ordered to rule out C. diff. Patient remains afebrile. Pulse rate 94, respirations 16 blood pressure 143/80 94% on room air. W BC 4.4, hemoglobin 12.4, potassium 3.1, BUN less than 5, creatinine 0.5 REVIEW OF SYSTEMS Constitutional: Reports reports fever, reports chills, no night sweats. No weight change. Reports weakness, Reports fatigue Reports lethargy. Reports daytime sleepiness. EENT: No headache. No blurred vision or double vision, no loss of vision. No nasal drainage or congestion. No sore throat. Lungs: No shortness of breath, cough, no sputum production. No wheezing. Cardiovascular: No chest pain, no lower extremity edema. No palpitations. No paroxysmal nocturnal dyspnea. No orthopnea. No lightheadedness or dizziness. No syncopal episodes. Abdominal: No abdominal pain. Reports nausea, Reports vomiting. Reports diarrhea. No constipation. No bloody or tarry stools.Reports loss of appetite. Genitourinary: No dysuria, increased frequency, urgency. No urinary retention. Musculoskeletal: No myalgias. Reports muscle weakness, no gait dysfunction, no frequent falls. No back pain. No neck pain. Integumentary: No wounds, no lesions. No rash or pruritus. Neurologic: No aphasia. No facial droop. No change in mentation. No head injury. No headache. No paralysis. No paresthesia. Psychiatric: No depression. No anxiety. Endocrine: No abnormal blood sugars. PHYSICAL EXAMINATION Gen: This is a 50-year-old female. Patient is resting on the ER stretcher and appears to be comfortable. HEENT: Head is atraumatic, normocephalic. Pupils equal, round. Sclerae is anicteric. NECK: Supple. No JVD. No lymphadenopathy. No thyromegaly. LUNGS: Clear to auscultation. No wheezes or rhonchi. No intercostal retractions. HEART: Regular rate and rhythm. No murmur. ABDOMEN: Soft. Bowel sounds are present. No masses. Mild generalized tenderness. EXTREMITIES: No pedal edema. No calf tenderness. NEUROLOGICAL: Patient is awake, alert and oriented x3. Cranial nerves 2 through 12 are grossly intact. ASSESSMENT AND PLAN 1. Sepsis secondary to Covid 19 infection with GI symptoms. Patient is continued on dexamethasone 6 mg IV daily, Zofran as needed for nausea. Continue vitamin C, vitamin D and zinc. Consult for infectious disease appreciated. A stool culture ordered to rule out C. diff. Discontinue Compazine. We'll start scopolamine patch and Reglan 10 mg before meals and at bedtime 2. Gastroesophageal reflux disease. Protonix 40 mg IV daily. 3. History of stress incontinence. 4. GI prophylaxis. As noted above 5. DVT prophylaxis. Lovenox 40 mg daily. 6. Hypokalemia secondary to GI losses. Potassium replacement. Repeat CMP in the morning. 7. Dehydration. Continue IV fluids. Patient will be admitted to the hospital for a minimum of 2 night stay. DISCHARGE PLAN home. Impression and plan of care have been directed as dictated by the signing physician. Blanca Wright nurse practitioner acting as scribe for signing physician. Objective - Vital Signs Vital signs: Vital Signs Temp 98.8 F 09/20/20 08:02 Pulse 94 09/20/20 08:02 Resp 16 09/20/20 08:24 BP 143/87 09/20/20 08:02 Pulse Ox 94 L 09/20/20 08:02 Intake & Output 09/19/20 09/20/20 09/20/20 18:59 06:59 18:59 Intake Total 910 Balance 910 Intake: Intake, IV Titration 910 Amount Sodium Chloride 0.9% 1, 910 000 ml @ 130 mls/hr IV . Q7H42M [facility] Rx#:[id number] Other: Voiding Method Toilet Toilet # Voids 2 - Labs CBC & Chem 7: 09/20/20 06:02 09/20/20 06:02 Labs: Abnormal Lab Results - Last 24 Hours (Table) 09/20/20 09/20/20 09/20/20 Range/Units 06:02 06:02 06:02 Lymphocytes # 0.7 L (1.0-4.8) k/uL D-Dimer 0.64 H (<0.60) mg/L FEU Potassium 3.1 L (3.5-5.5) mmol/L BUN <5.0 L (9.0-27.0) mg/dL Creatinine 0.5 L (0.6-1.5) mg/dL Glucose 115 H (70-110) mg/dL Calcium 7.7 L (8.7-10.3) mg/dL AST 43 H (13-35) U/L Lactate Dehydrogenase 392 H (120-246) U/L C-Reactive Protein 4.3 H (0.0-0.8) mg/dL Total Protein 5.3 L (6.2-8.2) g/dL Albumin 3.50 L (3.80-4.90) g/dL Microbiology - Last 24 Hours (Table) 09/18/20 08:30 Blood Culture - Preliminary Blood No Growth after 48 hours
[2020-09-20] MEDS: METOCLOPRAMIDE 5 MG/ML 2 ML VIAL IVP SCH ×3 (11:45→20:15)
[2020-09-20] MEDS: POTASSIUM CHLORIDE 10 MEQ in WATER FOR INJECTION 1 100ML.BAG IVPB SCH ×5 (11:46→20:22)
[2020-09-20] MEDS: IBUPROFEN 400 MG TAB PO PRN (16:16)
--- NOTE | 2020-09-20 22:44 | PN ---
PROGRESS NOTE DATE OF SERVICE: 09/20/2020 REASON FOR FOLLOWUP: Acute COVID-19 infection. INTERVAL HISTORY: Patient is still running a fever. She did have temperature a 100.9 this afternoon, requiring supplemental oxygen. Denies having any chest pain. Still complaining of feeling nauseated and dry heaves, but no vomiting. No abdominal pain. Still having diarrhea. No chest pain. Some shortness of breath. Minimal cough. PHYSICAL EXAMINATION: Blood pressure 135/91 with a pulse of 90, temperature 98.7, T-max 100.9. She is 94% on 2 L nasal cannula. General description is a middle-aged female lying in bed in no distress. Respiratory system: Unlabored breathing, coarse breath sounds bilaterally. Heart S1, S2. Regular rate and rhythm. Abdomen soft, no tenderness. LABS: Hemoglobin is 12.4, white count 4.4, BUN of less than 5, creatinine 0.5, slightly improved. Stool for C difficile is negative. DIAGNOSTIC IMPRESSION AND PLAN: Patient with acute Covid-19 infection, predominantly with GI symptoms. However, the patient did have a multifocal infiltrate on x-ray, we will start the patient on Remdesivir and continue with dexamethasone, Lovenox and zinc sulfate and monitor clinical course closely. MMODL / IJN: [id number] /
[2020-09-20] MEDS ORDERED: REMDESIVIR (EUA) 200 MG in SODIUM CHLORIDE 0.9% 250 ML IVPB ONE (23:00)
[2020-09-21] MEDS: SODIUM CHLORIDE 0.9% 1,000 ML IV SCH ×4 (00:12→22:53)
[2020-09-21 07:01] LABS: Basophils % (A) 0 %; Eosinophils % (A) 0 %; HCT 35.7 % (34.0-46.0); Lymphocytes # (A) 0.7 k/uL (1.0-4.8); Lymphocytes % (A) 19 %; MCHC 33.6 g/dL (31.0-37.0); MCV 86.1 fL (80.0-100.0); Mean Platelet Volume 7.1; Monocytes # (A) 0.2 k/uL (0-1.0); Monocytes % (A) 5 %; Neutrophils # (A) 2.8 k/uL (1.3-7.7); Neutrophils % (A) 74 %; Platelet Count 199 k/uL (150-450); RBC 4.15 m/uL (3.80-5.40); RDW 12.7 % (11.5-15.5); WBC 3.8 k/uL (3.8-10.6)
[2020-09-21] MEDS: METOCLOPRAMIDE 5 MG/ML 2 ML VIAL IVP SCH ×4 (07:56→20:04)
[2020-09-21] MEDS: PANTOPRAZOLE 40 MG/10 ML VIAL IVP SCH (07:56)
[2020-09-21] MEDS: DEXAMETHASONE SOD PHOSPHATE 10 MG/ML 1 ML VIAL IV SCH (07:56)
[2020-09-21] MEDS: CHOLECALCIFEROL 1,000 UNIT TAB PO SCH ×2 (07:57→08:05)
[2020-09-21] MEDS: ASCORBIC ACID 500 MG TAB PO SCH ×2 (07:57→20:03)
[2020-09-21] MEDS: ENOXAPARIN 40 MG/0.4 ML SYRINGE SQ SCH (07:58)
[2020-09-21] MEDS: ZINC SULFATE 220 MG CAP PO SCH (07:58)
[2020-09-21 10:09] LABS: Anion Gap 8.3 mmol/L (4.00-12.00); Calcium 7.9 mg/dL (8.7-10.3); Carbon Dioxide 26.7 mmol/L (21.6-31.8); Potassium 3.1 mmol/L (3.5-5.5)
--- NOTE | 2020-09-21 11:07 | P.PN ---
Subjective Progress Note Date: 09/21/20 This is a 50-year-old female patient of Dr. Dobson with past medical history of gastroesophageal reflux disease, stress incontinence. 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 She initially presented to the emergency room on September 16 with nausea, vomiting, diarrhea that and going on for 48 hours. She also had body aches and fever. Symptoms started on Tuesday of last week. She did not have any shortness of breath. Inflammatory markers were elevated. Chest x-ray showed left lower lobe pneumonia. Patient had stable pulse ox and was discharged home with Reglan and Zofran which she has been taking. She returned today with continuing nausea, vomiting and diarrhea and unable to tolerate oral intake. She denies any abdominal pain. She continues to have fever. She denies having any cough or sputum production. No shortness of breath. No loss of taste or smell. She does have decreased appetite. Diarrhea is occurring a few times per day. She states that her daughter has also been diagnosed and second child is being tested. Her does not have any symptoms. Patient came into [facility] emergency center for reevaluation and found to have a fever of 103.1, heart rate 108, blood pressure 157/84, pulse ox 92% on oxygen. Sodium 135, potassium 3.1. BUN 5 and creatinine 0.62. Blood sugar 127. La ctic acid 0.7. AST 55 and ALT 48. EKG was a sinus rhythm with no acute ST changes. Repeat chest x-ray reveals subsegmental basilar atelectasis changes correlate to exclude pneumonia. Urinalysis cloudy, leukoesterase small, blood small. Patient started on Decadron, Zofran, Compazine, IV fluids and [facility] 09/20: Patient continues to complain of nausea Compazine and Zofran is not helping. Patient continues to have vomiting and diarrhea that is foul-smelling. Patient was seen by . Stool culture was ordered to rule out C. diff. Patient remains afebrile. Pulse rate 94, respirations 16 blood pressure 143/80 94% on room air. W BC 4.4, hemoglobin 12.4, potassium 3.1, BUN less than 5, creatinine 0.5 09/21: Patient states that she is feeling much better. She has not had any further nausea or vomiting. She only had one episode of diarrhea yesterday. She did have a fever yesterday evening at 100.9 and she was started on remdesivir per infectious disease. scopolamine patch still in place. Patient is afebrile at this time. Pulse rate 87, respirations 18, pulse ox a 90% on 2 L, blood pressure 136/88. Stool cultures still pending REVIEW OF SYSTEMS Constitutional: Reports reports fever, reports chills, no night sweats. No weight change. Reports weakness, Reports fatigue Reports lethargy. Reports daytime sleepiness. EENT: No headache. No blurred vision or double vision, no loss of vision. No n vern drainage or congestion. No sore throat. Lungs: No shortness of breath, cough, no sputum production. No wheezing. Cardiovascular: No chest pain, no lower extremity edema. No palpitations. No p aroxysmal nocturnal dyspnea. No orthopnea. No lightheadedness or dizziness. No syncopal episodes. Abdominal: No abdominal pain. Reports nausea, Reports vomiting. Reports diarrhea. No constipation. No bloody or tarry stools.Reports loss of appetite. Genitourinary: No dysuria, increased frequency, urgency. No urinary retention. Musculoskeletal: No myalgias. Reports muscle weakness, no gait dysfunction, no frequent falls. No back pain. No neck pain. Integumentary: No wounds, no lesions. No rash or pruritus. Neurologic: No aphasia. No facial droop. No change in mentation. No head injury. No headache. No paralysis. No paresthesia. Psychiatric: No depression. No anxiety. Endocrine: No abnormal blood sugars. PHYSICAL EXAMINATION Gen: This is a 50-year-old female. Patient is resting on the ER stretcher and appears to be comfortable. HEENT: Head is atraumatic, normocephalic. Pupils equal, round. Sclerae is anicteric. NECK: Supple. No JVD. No lymphadenopathy. No thyromegaly. LUNGS: Clear to auscultation. No wheezes or rhonchi. No intercostal retractions. HEART: Regular rate and rhythm. No murmur. ABDOMEN: Soft. Bowel sounds are present. No masses. Mild generalized tenderness. EXTREMITIES: No pedal edema. No calf tenderness. NEUROLOGICAL: Patient is awake, alert and oriented x3. Cranial nerves 2 through 12 are grossly intact. ASSESSMENT AND PLAN 1. Sepsis secondary to Covid 19 infection with GI symptoms. Patient is continued on dexamethasone 6 mg IV daily, Zofran as needed for nausea. Continu e vitamin C, vitamin D and zinc. Consult for infectious disease appreciated. Remdesivir started yesterday, awaiting recommendations from infectious disease to see if entire course will be given A stool culture pending We'll start scopolamine patch and Reglan 10 mg before meals and at bedtime 2. Gastroesophageal reflux disease. Protonix 40 mg IV daily. 3. History of stress incontinence. 4. Hypokalemia secondary to GI losses. Potassium replacement. Repeat CMP in the morning. Repeat potassium 3.1 today 5. Dehydration. Continue IV fluids. 6. GI prophylaxis. As noted above 7. DVT prophylaxis. Lovenox 40 mg daily. Patient will be admitted to the hospital for a minimum of 2 night stay. DISCHARGE PLAN home possibly tomorrow Impression and plan of care have been directed as dictated by the signing physician. Blanca Wright nurse practitioner acting as scribe for signing physician. Objective - Vital Signs Vital signs: Vital Signs Temp 98.6 F 09/21/20 07:29 Pulse 87 09/21/20 07:29 Resp 18 09/21/20 07:29 BP 136/88 09/21/20 07:29 Pulse Ox 90 L 09/21/20 07:29 Intake & Output 09/20/20 09/21/20 09/21/20 18:59 06:59 18:59 Other: Voiding Method Toilet Toilet Toilet # Voids 2 1 # Bowel Movements 1 - Labs CBC & Chem 7: 09/21/20 06:01 09/21/20 06:01 Labs: Abnormal Lab Results - Last 24 Hours (Table) 09/20/20 09/21/20 09/21/20 Range/Units 06:02 06:01 06:01 Lymphocytes # 0.7 L (1.0-4.8) k/uL Potassium 3.1 L (3.5-5.5) mmol/L BUN 6.0 L (9.0-27.0) mg/dL BUN/Creatinine Ratio 10.00 L (12.00-20.00) Ratio Calcium 7.9 L (8.7-10.3) mg/dL Procalcitonin 1.00 H (0.02-0.09) ng/mL Microbiology - Last 24 Hours (Table) 09/18/20 08:30 Blood Culture - Preliminary Blood No Growth after 72 hours 09/19/20 08:30 Stool Culture - Preliminary Stool
--- NOTE | 2020-09-21 16:28 | US ---
EXAMINATION TYPE: US venous doppler duplex LE LT DATE OF EXAM: 09/21/2020 4:11 PM COMPARISON: NONE CLINICAL HISTORY: r/o DVT. pain behind left knee SIDE PERFORMED: left TECHNIQUE: The lower extremity deep venous system is examined utilizing real time linear array sonog queenie with graded compression, doppler sonography and color-flow sonography. VESSELS IMAGED: Common Femoral Vein Deep Femoral Vein Greater Saphenous Vein * Femoral Vein Popliteal Vein Small Saphenous Vein * Proximal Calf Veins (* superficial vessels) Left Leg: no evidence of DVT IMPRESSION: No sign of deep vein thrombosis in the left leg.
[2020-09-21] MEDS: LORazepam 1 MG TAB PO PRN (20:04)
[2020-09-21] MEDS ORDERED: REMDESIVIR (EUA) 100 MG in SODIUM CHLORIDE 0.9% 250 ML IVPB SCH (21:00)
[2020-09-21 21:59] VITALS: RESP 16
--- NOTE | 2020-09-22 04:07 | PN ---
PROGRESS NOTE DATE OF SERVICE: 09/21/2020 REASON FOR FOLLOWUP: COVID-19 pneumonia. INTERVAL HISTORY: The patient's overall fever pattern has improved. No fever recorded in last 24 hours. The patient is feeling slightly better. She is breathing comfortably. No further nausea, no vomiting, no diarrhea. No chest pain, short of breath. Occasional cough. PHYSICAL EXAMINATION: Blood pressure is 157/94 with a pulse of 98, temperature 98.1. She is 95% on room air. General description is a middle-aged female up in the bed in no distress. RESPIRATORY SYSTEM: Unlabored breathing, decreased intensity of breath sounds. No wheeze. HEART: S1, S2. Regular rate and rhythm. ABDOMEN: Soft, no tenderness. LABS: Hemoglobin is 12, white count 3.8, BUN of 6, creatinine 0.6. DIAGNOSTIC IMPRESSION AND PLAN: Patient with acute COVID-19 infection. The patient did have predominant gastrointestinal symptoms however was also hypoxic and the patient has seemed to shown overall clinical improvement. She will continue with remdesivir, Lovenox, dexamethasone as the patient can be weaned off the oxygen and be able to go home in the morning. This was discussed in detail with the patient. All questions and concerns were answered. MMODL / IJN: [id number] /
[2020-09-22 04:22] VITALS: BP 146/88; PULSE 78; TEMP 98.6
[2020-09-22 06:42] LABS: Basophils % (A) 1 %; Eosinophils % (A) 0 %; HCT 35.7 % (34.0-46.0); HGB 12.3 gm/dL (11.4-16.0); Lymphocytes # (A) 0.7 k/uL (1.0-4.8); Lymphocytes % (A) 20 %; MCH 29.6 pg (25.0-35.0); MCHC 34.4 g/dL (31.0-37.0); MCV 86.3 fL (80.0-100.0); Mean Platelet Volume 6.9; Monocytes # (A) 0.3 k/uL (0-1.0); Monocytes % (A) 7 %; Neutrophils # (A) 2.5 k/uL (1.3-7.7); Neutrophils % (A) 70 %; Platelet Count 231 k/uL (150-450); RBC 4.14 m/uL (3.80-5.40); RDW 12.2 % (11.5-15.5); WBC 3.5 k/uL (3.8-10.6)
[2020-09-22] MEDS: ASCORBIC ACID 500 MG TAB PO SCH (08:07)
[2020-09-22] MEDS: DEXAMETHASONE SOD PHOSPHATE 10 MG/ML 1 ML VIAL IV SCH (08:07)
[2020-09-22] MEDS: CHOLECALCIFEROL 1,000 UNIT TAB PO SCH (08:07)
[2020-09-22] MEDS: ZINC SULFATE 220 MG CAP PO SCH (08:08)
[2020-09-22] MEDS: PANTOPRAZOLE 40 MG/10 ML VIAL IVP SCH (08:08)
[2020-09-22] MEDS: ENOXAPARIN 40 MG/0.4 ML SYRINGE SQ SCH (08:08)
[2020-09-22] MEDS: METOCLOPRAMIDE 5 MG/ML 2 ML VIAL IVP SCH (08:09)
--- NOTE | 2020-09-22 09:20 | P.DS ---
Providers Date of admission: 09/18/20 07:16 Expected date of discharge: 09/22/20 Attending physician: Ramon Chapman Consults: 09/19/20 08:49 Consult Physician Routine Consulting Provider: Michelet Marinelli Consult Reason/Comments: covid, gi symptoms Do you want consulting provider notified?: Yes Primary care physician: [place] [facility] Course: This is a 50-year-old female patient of Dr. Dobson with past medical history of gastroesophageal reflux disease, stress incontinence. 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 She initially presented to the emergency room on September 16 with nausea, vomiting, diarrhea that and going on for 48 hours. She also had body aches and fever. Symptoms started on Tuesday of last week. She did not have any shortness of breath. Inflammatory markers were elevated. Chest x-ray showed left lower lobe pneumonia. Patient had stable pulse ox and was discharged home with Reglan and Zofran which she has been taking. She returned today with continuing nausea, vomiting and diarrhea and unable to tolerate oral intake. She denies any abdominal pain. She continues to have fever. She denies having any cough or sputum production. No shortness of breath. No loss of taste or smell. She does have decreased appetite. Diarrhea is occurring a few times per day. She states that her daughter has also been diagnosed and second child is being tested. Her does not have any symptoms. Patient came into [facility] emergency center for reevaluation and found to have a fever of 103.1, heart rate 108, blood pressure 157/84, pulse ox 92% on oxygen. Sodium 135, potassium 3.1. BUN 5 and creatinine 0.62. Blood sugar 127. Lactic acid 0.7. AST 55 and ALT 48. EKG was a sinus rhythm with no acute ST changes. Repeat chest x-ray reveals subsegmental basilar atelectasis changes correlate to exclude pneumonia. Urinalysis cloudy, leukoesterase small, blood small. Patient started on Decadron, Zofran, Compazine, IV fluids and admitted to [facility] floor. 09/20: Patient continues to complain of nausea Compazine and Zofran is not helping. Patient continues to have vomiting and diarrhea that is foul-smelling. Patient was seen by . Stool culture was ordered to rule out C. diff. Patient remains afebrile. Pulse rate 94, respirations 16 blood pressure 143/80 94% on room air. W BC 4.4, hemoglobin 12.4, potassium 3.1, BUN less than 5, creatinine 0.5 09/21: Patient states that she is feeling much better. She has not had any further nausea or vomiting. She only had one episode of diarrhea yesterday. She did have a fever yesterday evening at 100.9 and she was started on remdesivir per infectious disease. scopolamine patch still in place. Patient is afebrile at this time. Pulse rate 87, respirations 18, pulse ox a 90% on 2 L, blood pressure 136/88. Stool cultures still pending 09/22: Patient continues to feel quite well today. She does have some nausea and prescription for scopolamine patch will be given. GERD had Zofran at home which did not seem to help. No abdominal pain. No shortness of breath. She has been cleared for discharge today by Dr. Marinelli. Ultrasound of the lower extremity was negative for DVT. She is pulse ox a 94% on room air. She has been afebrile since the afternoon of September 20. Heart rate 78, blood pressure 146/88. Repeat CBC reveals WBC 3.5, hemoglobin 12.3, platelet count 231. Patient will be discharged home today in stable condition. ASSESSMENT AND PLAN 1. Sepsis secondary to Covid 19 infection with GI symptoms. 2. Gastroesophageal reflux disease. 3. History of stress incontinence. 4. Hypokalemia secondary to GI losses. 5. Dehydration. DISCHARGE PLAN home Impression and plan of care have been directed as dictated by the signing physician. Paula Valentin nurse practitioner acting as scribe for signing physician. Patient Condition at Discharge: Good Plan - Discharge Summary New Discharge Prescriptions: New Dexamethasone [Decadron] 6 mg PO DAILY #5 tablet Zinc Sulfate [Orazinc] 220 mg PO DAILY cap Pantoprazole Sodium [Protonix] 40 mg PO DAILY #30 tablet.dr Chandleresin SYRUP 100MG/5ML [Robitussin] 200 mg PO Q6H PRN ml PRN Reason: Cough Ascorbic Acid [Vitamin C] 500 mg PO BID tab Cholecalciferol [Vitamin D3 (25 Mcg = 1000 Iu)] 2,000 unit PO DAILY tab Scopolamine 1.5MG/72Hr Patch [TransDerm Scop] 1 patch TRANSDERM Q72H #3 patch Continue Metoclopramide [Reglan] 10 mg PO BID #20 tab Ondansetron Odt [Zofran ODT] 4 mg PO Q8HR PRN #12 tab PRN Reason: Nausea LORazepam [Ativan] 0.5 mg PO BID PRN PRN Reason: Anxiety Discharge Medication List Metoclopramide [Reglan] 10 mg PO BID #20 tab 09/16/20 [Rx] Ondansetron Odt [Zofran ODT] 4 mg PO Q8HR PRN #12 tab 09/16/20 [Rx] LORazepam [Ativan] 0.5 mg PO BID PRN 09/18/20 [History] Ascorbic Acid [Vitamin C] 500 mg PO BID tab 09/22/20 [Rx] Cholecalciferol [Vitamin D3 (25 Mcg = 1000 Iu)] 2,000 unit PO DAILY tab 09/22/20 [Rx] Dexamethasone [Decadron] 6 mg PO DAILY #5 tablet 09/22/20 [Rx] Pantoprazole Sodium [Protonix] 40 mg PO DAILY #30 tablet. 09/22/20 [Rx] Scopolamine 1.5MG/72Hr Patch [TransDerm Scop] 1 patch TRANSDERM Q72H #3 patch 09/22/20 [Rx] Zinc Sulfate [Orazinc] 220 mg PO DAILY cap 09/22/20 [Rx] guaiFENesin SYRUP 100MG/5ML [Robitussin] 200 mg PO Q6H PRN ml 09/22/20 [Rx] Follow up Appointment(s)/Referral(s): Ze Dobson DO [Primary Care Provider] - 1 Week Discharge Disposition: HOME SELF-CARE
[2020-09-22 09:32] LABS: Anion Gap 9.8 mmol/L (4.00-12.00); BUN/Creat Ratio 13.33 Ratio (12.00-20.00); Carbon Dioxide 27.2 mmol/L (21.6-31.8); Potassium 2.9 mmol/L (3.5-5.5)
== END 2020-09-22 09:30 | disposition home or self-care (01) | DRG 871 ==
LOC: EC 05:09 → 6NMEDSUR 07:16 → 4SSUR 17:50
PROVIDERS: ADMIT Internal Medicine Geriatric Medicine; ATTEND Internal Medicine Geriatric Medicine
PROC: XW033E5 Introduction of Remdesivir Anti-infective into Peripheral Vein, Percutaneous Approach, New Technology Group 5 (ICD-10-PCS; principal; 2020-09-20)
DX: A41.89 Other specified sepsis (principal); J12.89 Other viral pneumonia; U07.1 COVID-19; J98.11 Atelectasis; K21.9 Gastro-esophageal reflux disease without esophagitis; N39.3 Stress incontinence (female) (male); F41.9 Anxiety disorder, unspecified; E87.6 Hypokalemia; E86.0 Dehydration; D72.810 Lymphocytopenia; R09.02 Hypoxemia; Z79.899 Other long term (current) drug therapy; Z87.440 Personal history of urinary (tract) infections; Z98.890 Other specified postprocedural states; Z90.49 Acquired absence of other specified parts of digestive tract; Z82.49 Family history of ischemic heart disease and other diseases of the circulatory system; Z83.3 Family history of diabetes mellitus
CPT/HCPCS: 36415; 71045; 80048; 80053; 81001; 83605; 83615; 84145; 85025; 85027; 85379; 86140; 87040; 87045; 87046; 87324; 87449; 93005; 96361; 96372; 96374; 96375; 99285

== ENCOUNTER → 2021-01-29 | Outpatient (CLI) | payer BC ==
[2021-01-29 14:45] LABS: HGB 15.4 g/dL (12.0-15.0); MCH 29.2 pg (27.0-32.0); MCHC 32.8 g/dL (32.0-37.0); MCV 89.2 fL (80.0-97.0); Mean Platelet Volume 9.4 fL (9.5-12.2); Platelet Count 340 X 10*3/uL (140-440); RBC 5.27 X 10*6/uL (4.10-5.20); WBC 6.65 X 10*3/uL (4.50-10.00)
[2021-01-29 18:19] LABS: Prolactin 8.6 ng/mL (2.8-29.2); T4, Free (Free Thyroxine) 1.2 ng/dL (0.80-1.80)
[2021-01-29 18:46] LABS: Thyroid Peroxidase Antibodies <28.0 U/mL (0.0-60.0)
== END | disposition home or self-care (01) ==
LOC: LABWHC1 08:46
PROVIDERS: ATTEND Internal Medicine Endocrinology, Diabetes & Metabolism
DX: R53.83 Other fatigue (principal)
CPT/HCPCS: 36415; 82024; 82533; 82607; 84146; 84439; 84443; 84481; 84482; 85027; 86376; 86800

== ENCOUNTER → 2021-03-24 | Outpatient (CLI) | payer BC ==
--- NOTE | 2021-03-24 12:26 | MM ---
Reason for exam: screening (asymptomatic). Last mammogram was performed 1 year and 6 months ago. History: Family history of breast cancer in mother at age 64 and breast cancer in paternal aunt. Took hormonal contraceptives for 7 years beginning at age 27. Physical Findings: A clinical breast exam by your physician is recommended on an annual basis and results should be correlated with mammographic findings. MG 3D Screening Mammo W/Cad Bilateral CC and MLO view(s) were taken. Prior study comparison: September 26, 2019, bilateral MG 3d screening mammo w/cad. May 12, 2017, bilateral MG screening mammo w CAD. There are scattered fibroglandular densities. There is chronic nodularity in the right breast. There is no discrete abnormality. ASSESSMENT: Benign, BI-RAD 2 RECOMMENDATION: Routine screening mammogram of both breasts in 1 year.
== END | disposition home or self-care (01) ==
LOC: RADMAMWWP 09:25
PROVIDERS: ATTEND Obstetrics & Gynecology
DX: Z12.31 Encounter for screening mammogram for malignant neoplasm of breast (principal); Z80.3 Family history of malignant neoplasm of breast
CPT/HCPCS: 77063; 77067

== ENCOUNTER → 2022-11-30 | Outpatient (CLI) | payer BC ==
--- NOTE | 2022-12-01 09:13 | MM ---
Reason for Exam: Screening (asymptomatic). Last mammogram was performed 1 year(s) and 8 month(s) ago. Patient History: Menarche at age 14. First Full-Term at age 30. Postmenopausal. Patient has history of breast feeding. Hormonal Contraceptives for 7 years from age 27 until age 34. Currently using Estrogen and Progesterone, starting at age 52. Paternal aunt had breast cancer. Mother had breast cancer, age 64. Risk Values: Stephanie 5 year model risk: 2.0%. NCI Lifetime model risk: 16.6%. Prior Study Comparison: 11/26/2014 Bilateral Screening Mammogram, [facility]. 05/12/2017 Bilateral Screening Mammogram, [facility]. 09/26/2019 Bilateral Screening Mammogram, [facility]. 03/24/2021 Bilateral Screening Mammogram, [facility]. Tissue Density: The breast tissue is heterogeneously dense. This may lower the sensitivity of mammography. Findings: Analyzed By CAD. There is no suspicious group of microcalcifications or new suspicious mass in either breast. Chronic nodularity within both breasts. Overall Assessment: Benign, BI-RAD 2 Management: Screening Mammogram of both breasts in 1 year. A clinical breast exam by your physician is recommended on an annual basis and results should be correlated with mammographic findings. Electronically signed and approved by: Minor Spencer D.O.
== END | disposition home or self-care (01) ==
LOC: RADMAMWWP 07:41
PROVIDERS: ATTEND Obstetrics & Gynecology
DX: Z12.31 Encounter for screening mammogram for malignant neoplasm of breast (principal); Z78.0 Asymptomatic menopausal state; Z80.3 Family history of malignant neoplasm of breast
CPT/HCPCS: 77063; 77067

== ENCOUNTER → 2024-01-20 | Outpatient (CLI) | payer BC ==
--- NOTE | 2024-01-24 09:15 | MM ---
Reason for Exam: Screening (asymptomatic). Last mammogram was performed 1 year(s) and 2 month(s) ago. Patient History: Menarche at age 14. First Full-Term at age 30. Postmenopausal. Patient has history of breast feeding. Hormonal Contraceptives for 7 years from age 27 until age 34. Currently using Estrogen and Progesterone, starting at age 52. Paternal aunt had breast cancer. Mother had breast cancer, age 64. Risk Values: Stephanie 5 year model risk: 2.1%. NCI Lifetime model risk: 16.3%. Prior Study Comparison: 09/26/2019 Bilateral Screening Mammogram, [facility]. 03/24/2021 Bilateral Screening Mammogram, [facility]. 11/30/2022 Bilateral MG 3D screening mammo w/cad, [facility]. Tissue Density: There are scattered areas of fibroglandular density. Findings: Analyzed By CAD. There is no suspicious group of microcalcifications or new suspicious mass. Overall Assessment: Negative, BI-RAD 1 Management: Screening Mammogram of both breasts in [address] [facility] will attempt to contact patient to return for supplemental views and ultrasound if indicated. Patient should continue monthly self-breast exams. A clinical breast exam by your physician is recommended on an annual basis. This exam should not preclude additional follow-up of suspicious palpable abnormalities. Note on Stephanie scores and lifetime risk: 1. A Stephanie score greater than 3% is considered moderate risk. If this is the case, consider specialist referral to assess eligibility for a risk reducing agent. 2. If overall lifetime risk for the development of breast cancer is 20% or higher, the patient may qualify for future screening with alternating mammogram and breast MRI. Electronically signed and approved by: Dwayne Yanes DO
== END | disposition home or self-care (01) ==
LOC: RADMAMWWP 07:52
PROVIDERS: ATTEND Obstetrics & Gynecology
DX: Z12.31 Encounter for screening mammogram for malignant neoplasm of breast (principal)
CPT/HCPCS: 77063; 77067

== ENCOUNTER → 2025-02-14 | Outpatient (CLI) | payer BC ==
--- NOTE | 2025-02-14 12:33 | MM ---
Reason for Exam: Screening (asymptomatic). Last mammogram was performed 1 year(s) and 1 month(s) ago. Patient History: Menarche at age 14. First Full-Term at age 30. Postmenopausal. Patient has history of breast feeding. Hormonal Contraceptives for 7 years from age 27 until age 34. Currently using Estrogen and Progesterone, starting at age 52. Paternal aunt had breast cancer. Mother had breast cancer, age 64. Risk Values: Stephanie 5 year model risk: 2.2%. NCI Lifetime model risk: 16.1%. Prior Study Comparison: 03/24/2021 Bilateral Screening Mammogram, [facility]. 11/30/2022 Bilateral MG 3D screening mammo w/cad, [facility]. 01/20/2024 Bilateral MG 3D screening mammo w/cad, [facility]. Tissue Density: There are scattered areas of fibroglandular density. Findings: Analyzed By CAD. There is no suspicious group of microcalcifications or new suspicious mass in either breast. Overall Assessment: Negative, BI-RAD 1 Management: Screening Mammogram of both breasts in 1 year. Patient should continue monthly self-breast exams. A clinical breast exam by your physician is recommended on an annual basis. This exam should not preclude additional follow-up of suspicious palpable abnormalities. Note on Stephanie scores and lifetime risk: 1. A Stephanie score greater than 3% is considered moderate risk. If this is the case, consider specialist referral to assess eligibility for a risk reducing agent. 2. If overall lifetime risk for the development of breast cancer is 20% or higher, the patient may qualify for future screening with alternating mammogram and breast MRI. [facility], , 02/14/2025 12:30 PM. Electronically signed and approved by: Isidoro Troncoso M.D. Radiologist
== END | disposition home or self-care (01) ==
LOC: RADMAMWWP 07:11
PROVIDERS: ATTEND Obstetrics & Gynecology
DX: Z12.31 Encounter for screening mammogram for malignant neoplasm of breast (principal); R92.323 Mammographic fibroglandular density, bilateral breasts; Z78.0 Asymptomatic menopausal state; Z80.3 Family history of malignant neoplasm of breast; Z92.0 Personal history of contraception
CPT/HCPCS: 77063; 77067